=== PATIENT | male | born 1970 | race African-American/Black ===

== ENCOUNTER 2018-07-23 19:53 | Emergency (ER) | payer SELFPAY ==
[~2018-07-23] VITALS: Ht 185.4 cm; Wt 90.7 kg
[2018-07-23 20:00] VITALS: BP 162/82
--- NOTE | 2018-07-23 21:10 | PHYS DOC ---
Past Medical History Past Medical History: Diabetes-Type II, High Cholesterol, Hypertension Additional Past Medical Histor: CHORNIC BACK PAIN Additional Past Surgical Histo: LT ABOVE KNEE AMPUTATION, NOSE/THROAT SURG Alcohol Use: None Drug Use: None Adult General Chief Complaint Chief Complaint: OTHER COMPLAINTS HPI HPI 48 y/o male presents to ER via EMS for concerns he was discharged from [facility] to soon following an AKA of lt leg. Pt reports he had surgery 6 or 7 days ago- uncertain of date and has been inpt at since the surgery. Pt reports he was discharged from today and when he was leaving he was met by the [facility] for an outstanding warrant and was taken to the [facility]'s Department. Pt reports he wanted to stay in the hospital longer and that he felt he shouldn't have been discharged into police custody. Pt reports he was bonded out at the [facility]'s office and so he chose to come to [facility] for additional care. Pt reports initially he wasn't given discharge instructions or able to pickup driver Rxs since he was taken to shelter. However when looking thru his belongings discharge paperwork was found along with Rxs for pain med, Risperdal , and bactroban ointment. Pt states he didn't know he had those Rxs. Pt was provided with walker at for ambulation with a nonweightbearing instruction. Pt wanted to talk about his feelings on [facility] and how he felt he should have been able to remain admitted there. When this provider offered to call and discuss his care with his physicians at [facility]. he wanted no contact to be made between this hospital and to discuss his case. Pt during initial exam was asked about his housing and he reports he lives in [place] and isn't able to get old of family for transport home following his discharge from or at the [facility]'s office. Review of Systems Review of Systems Constitutional: Denies fever or chills [] Eyes: Denies change in visual acuity, redness, or eye pain [] HENT: Denies nasal congestion or sore throat [] Respiratory: Denies cough or shortness of breath [] Cardiovascular: No additional information not addressed in HPI [] GI: Denies abdominal pain, nausea, vomiting, bloody stools or diarrhea [] : Denies dysuria or hematuria [] Musculoskeletal: Denies back pain or joint pain [] Integument: Denies rash or skin lesions [] Neurologic: Denies headache, focal weakness or sensory changes [] Endocrine: Denies polyuria or polydipsia [] All other systems were reviewed and found to be within normal limits, except as documented in this note. Allergies Allergies Allergies Coded Allergies Type Severity Reaction Last Updated Verified lisinopril Allergy Unknown 07/23/18 Yes Physical Exam Physical Exam Constitutional: Well developed, well nourished, no acute distress, non-toxic appearance. [] HENT: Normocephalic, atraumatic, bilateral external ears normal, oropharynx moist, no oral exudates, nose normal. [] Eyes: PERRLA, EOMI, conjunctiva normal, no discharge. [] Neck: Normal range of motion, no tenderness, supple, no stridor. [] Cardiovascular:Heart rate regular rhythm, no murmur [] Lungs & Thorax: Bilateral breath sounds clear to auscultation [] Abdomen: Bowel sounds normal, soft, no tenderness, no masses, no pulsatile masses. [] Skin: Warm, dry, no erythema, no rash. [] Back: No tenderness, no CVA tenderness. [] Extremities: No tenderness, no cyanosis, no clubbing, ROM intact, no edema. [] Neurologic: Alert and oriented X 3, normal motor function, normal sensory function, no focal deficits noted. [] Psychologic: Affect normal, judgement normal, mood normal. [] Current Patient Data Vital Signs Vital Signs Date Time Temp Pulse Resp B/P (MAP) Pulse Ox O2 Delivery O2 Flow Rate FiO2 07/23/18 20:00 98.2 115 18 162/82 (108) 100 Room Air 98.2 EKG EKG [] Radiology/Procedures Radiology/Procedures [] Course & Med Decision Making Course & Med Decision Making Exam was completed by this provider which was NL with lt AKA surgical site having dry/intact drsg to surgical wound- skin had no erythema/warmth. Femoral pulse strong with no skin discoloration in lt thigh/stump. Discussed that with NL exam and pt having Rxs and appropr. discharge instructions which instructed how he was to follow-up no testing/imaging needed at this time. Discussed pt calling family for transportation and pt made had many reasons why family wouldn 't be able to be reached. [id number]: following discussion with Dr. Gan pt is agreeable with discharge as transportation was able to set up to get him to [place] where his family lives. Pt at time of discharge was provided with milk and offered snacks. Pt remains neuro/vascular intact in bilat. LEs with drsg dry/intact to lt stump surgical site. Dragon Disclaimer Dragon Disclaimer This electronic medical record was generated, in whole or in part, using a voice recognition dictation system. Departure Departure Impression: Primary Impression: Leg pain, left Additional Impression: Assistance with transportation Disposition: 01 HOME, SELF-CARE Condition: STABLE Patient Instructions: Phantom Limb Pain Additional Instructions: You should follow discharge instructions provided to you by your doctors at [facility] along with taking prescribed medications as they instructed. You should schedule your follow-up appointment for re-evaluation of left leg surgical site as advised on your discharge paperwork. Use your walker for walking- avoiding weight bearing on left lower extremity as directed on your discharge paperwork. Continue wearing your stump splint provided by [facility] as advised on your [facility] discharge paperwork. You reported having phantom left leg pain so information is being provided for educational purposes. You should monitor your blood sugar while your surgical wound is healing. Monitor your skin around surgical site for signs of infection and call your orthopedic doctor with any concerns. Problem Qualifiers CRIS DELACRUZ APRN Jul 23, 2018 21:10
== END 2018-07-23 22:15 | disposition home or self-care (01) ==
LOC: ER 19:53
DX: M79.605 Pain in left leg (principal); E78.00 Pure hypercholesterolemia, unspecified; I10 Essential (primary) hypertension; E11.9 Type 2 diabetes mellitus without complications; G89.29 Other chronic pain; Z89.612 Acquired absence of left leg above knee; Z88.8 Allergy status to other drugs, medicaments and biological substances
CPT/HCPCS: 99283